=== PATIENT | female | born 1965 | race Caucasian/White ===

== ENCOUNTER 2017-09-16 16:08 | Emergency (ER) | payer SELFPAY ==
[2017-09-16 16:25] VITALS: TEMP 98.2
[2017-09-16 17:16] VITALS: O2SAT 97
--- NOTE | 2017-09-16 17:42 | RAD ---
EXAM DESCRIPTION: Chest,2 Views CLINICAL HISTORY: 51 years Female, right rib pain sob, fall 1 wk ago COMPARISON: None Available TECHNIQUE: PA/lateral FINDINGS: There is no cardiac or pulmonary abnormality. The lungs are clear. There is no effusion. No pneumothorax is detected. IMPRESSION: 1. Normal two-view chest. Electronically signed by: Jamel June MD 09/16/2017 5:41 PM CDT
--- NOTE | 2017-09-16 17:43 | RAD ---
EXAM DESCRIPTION: Ribs,Right 2 Views CLINICAL HISTORY: right rib pain sob, fall 1 wk ago COMPARISON: None. TECHNIQUE: 3 views FINDINGS: No pneumothorax is detected. No rib fractures are seen. IMPRESSION: No rib fractures are detected. Electronically signed by: Jamel June MD 09/16/2017 5:42 PM CDT
--- NOTE | 2017-09-16 18:00 | ED.PDOC ---
History of Present Illness - General Chief Complaint: Back Pain or Injury Stated Complaint: fell last tuesday but increased pain today Time Seen by Provider: 09/16/17 16:14 Source: patient Exam Limitations: no limitations - History of Present Illness Initial Comments: the patient is a 51-year-old female presenting to the emergency room secondary to pain with some shortness of breath when she went to the patient today. The patient apparently fell about 5 days ago and hit a bucket with her anterior chest. She has some bruising to the anterior chest wall. She does have tenderness to palpation but no crepitus. Lungs cool are clear. This was the first time she had shortness of breath since the injury. She moves her extremities well. No other obvious injuries. Timing/Duration: unsure Severity: moderate Improving Factors: nothing Worsening Factors: nothing Associated Symptoms: denies symptoms Allergies/Adverse Reactions: Allergies NO KNOWN ALLERGY Allergy (Verified 09/16/17 16:20) Home Medications: Ambulatory Orders Tramadol HCl 50 mg PO Q8HR PRN #20 tab 09/16/17 Review of Systems - Review of Systems Constitutional: States: no symptoms reported EENTM: States: no symptoms reported Respiratory: States: short of breath Cardiology: States: chest pain Gastrointestinal/Abdominal: States: no symptoms reported Genitourinary: States: no symptoms reported Musculoskeletal: States: no symptoms reported Skin: States: no symptoms reported Neurological: States: no symptoms reported Endocrine: States: no symptoms reported Hematologic/Lymphatic: States: no symptoms reported All other Systems: No Change from Baseline Past Medical History (General) - Patient Medical History Hx of COPD: No Hx Cardiac Disorders: No Hx Hypertension: No Hx Diabetes: No Hx MRSA: Yes - Foot 2009 MRSA Source:: Wound - Vaccination History Hx Tetanus, Diphtheria Vaccination: No Hx Influenza Vaccination: No Hx Pneumococcal Vaccination: No Immunizations Up to Date: No - Social History Hx Alcohol Use: No Hx Substance Use: No - Female History Patient is a Female of Child Bearing Age (10 -59 yrs old): No Family Medical History - Family History Mother Family History: Unknown Physical Exam - Physical Exam General Appearance: Alert, Anxious, No apparent distress Eye Exam: bilateral normal Ears, Nose, Throat: hearing grossly normal, normal ENT inspection, normal pharynx Neck: full range of motion, supple, normal inspection Respiratory: lungs clear, normal breath sounds, no respiratory distress, no accessory muscle use, other - bruising to the anterior right chest wall. Discomfort palpation but no obvious crepitus or deformity. 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 There is no evidence of any fracture or pneumothorax or hemothorax on this patient. No overt evidence of infection. She does need to move carefully she likely does have significant chest wall bruising. ER warnings were given for any significant worsening. She will be written for tramadol for as needed use. - Results/Orders Results/Orders: chest x-ray and rib series shows no evidence of fracture. No hemothorax. No pneumothorax. No significant infiltrate. Departure - Departure Clinical Impression: Chest wall contusion Qualifiers: Encounter type: initial encounter Laterality: right Qualified Code(s): S20.211A - Contusion of right front wall of thorax, initial encounter Disposition: Discharge to Home or Self Care Condition: Fair Departure Forms: ED Discharge - Pt. Copy, Patient Portal Self Enrollment Instructions: DI for Rib Contusion Diet: regular diet Activity: increase activity as tolerated Prescriptions: Tramadol HCl 50 mg PO Q8HR PRN #20 tab PRN Reason: Moderate Pain Home Medications: Ambulatory Orders Tramadol HCl 50 mg PO Q8HR PRN #20 tab 09/16/17 Additional Instructions: the patient's a 51-year-old female presenting to the emergency room secondary to worsening pain today and some mild shortness of breath after having moved to patient after injuring herself 5 days ago. There is no evidence of any fracture or pneumothorax or hemothorax on this patient. No overt evidence of infection. She does need to move carefully she likely does have significant chest wall bruising. ER warnings were given for any significant worsening. She will be written for tramadol for as needed use.
[2017-09-16 18:11] VITALS: BP 143/77
== END 2017-09-16 18:11 | disposition home or self-care (01) ==
LOC: ER 16:08
DX: S20.211A Contusion of right front wall of thorax, initial encounter (principal); R06.02 Shortness of breath; W01.198A Fall on same level from slipping, tripping and stumbling with subsequent striking against other object, initial encounter